=== PATIENT | male | born 1955 | race Caucasian/White ===

== ENCOUNTER → 2023-12-29 06:58 | Outpatient (REF) | payer MEDICARE, OTHER, SELFPAY | LOC: RAD 06:58 | PROVIDERS: ATTENDING PHYSICIAN Internal Medicine Cardiovascular Disease; FAMILY PHYSICIAN Family Medicine | DX: E04.1 Nontoxic single thyroid nodule (principal); I48.0 Paroxysmal atrial fibrillation; R29.890 Loss of height; I10 Essential (primary) hypertension; E34.9 Endocrine disorder, unspecified; M85.88 Other specified disorders of bone density and structure, other site | CPT/HCPCS: 76536; 77080; 93306 ==

== ENCOUNTER → 2024-06-15 15:56 | Outpatient (REF) | payer MEDICARE, OTHER, SELFPAY | LOC: PAVMRI 15:56 | PROVIDERS: ATTENDING PHYSICIAN Specialist; FAMILY PHYSICIAN Family Medicine | DX: M79.604 Pain in right leg (principal) | CPT/HCPCS: 73718 ==

== ENCOUNTER → 2024-07-31 09:13 | Outpatient (REF) | payer MEDICARE, OTHER, SELFPAY | LOC: PAVMRI 09:13 | PROVIDERS: ATTENDING PHYSICIAN Specialist; FAMILY PHYSICIAN Family Medicine | DX: M25.561 Pain in right knee (principal); M79.604 Pain in right leg | CPT/HCPCS: 73720; A9575 ==

== ENCOUNTER → 2025-09-12 07:50 | Outpatient (REF) | payer MEDICARE, OTHER, SELFPAY | LOC: HWRCS 07:50 | PROVIDERS: ATTENDING PHYSICIAN Internal Medicine Cardiovascular Disease; FAMILY PHYSICIAN Family Medicine | DX: I47.29 Other ventricular tachycardia (principal); I10 Essential (primary) hypertension; I48.0 Paroxysmal atrial fibrillation | CPT/HCPCS: 78452; 93017; A9500; J2785 ==